=== PATIENT | female | born 1935 | race African-American/Black ===

== ENCOUNTER 2018-02-19 09:00 | Emergency (ER) | payer OTHER, BC ==
[2018-02-19 09:09] VITALS: BP 128/88; PULSE 66; TEMP 97.5; BMI 26.6
[2018-02-19] MEDS ORDERED: predniSONE 20 MG TABLET (UD) PO ONE (09:54)
[2018-02-19] MEDS ORDERED: diphenhydrAMINE HCL 25 MG CAPSULE (FP) PO ONE ×2 (09:54→09:57)
[2018-02-19] MEDS ORDERED: RANITIDINE HCL 150 MG TABLET (FP) PO ONE (09:55)
[2018-02-19] MEDS ORDERED: RANITIDINE HCL 150 MG TABLET (FP) ONE (09:57)
[2018-02-19] MEDS ORDERED: predniSONE 20 MG TABLET (UD) ONE (09:57)
--- NOTE | 2018-02-19 10:03 | PDOC ---
History of Present Illness - General Chief Complaint: Eye Problem Stated Complaint: EYE PROBLEM Time Seen by Provider: 02/19/18 09:48 History Source: Patient Exam Limitations: No Limitations - History of Present Illness Initial Comments: 02/19/18 09:57 82-year-old female presents to the ED with complaints of bilateral arm itching, facial swelling extending to the lower eyelids that worsened in severity this morning but began yesterday. Patient states 2 days ago was working in the garden without gloves when she touched poison candelaria but thought she had washed her hands following the exposure. Patient states has not taken any medication or applied any topicals and decided come to the ER today. Patient denies allergies difficulty breathing or difficulty swallowing. Timing/Duration: other Severity: mild Associated Symptoms: reports: rash Past History - Travel Traveled outside of the country in the last 30 days: No - Past Medical History Allergies/Adverse Reactions: Allergies Allergy/AdvReac Type Severity Reaction Status Date / Time No Known Allergies Allergy Verified 02/19/18 09:04 Home Medications: Ambulatory Orders Enalapril Maleate 10 mg PO DAILY 08/26/15 Atorvastatin Ca [Lipitor] 20 mg PO HS 02/19/18 Donepezil HCl [Aricept -] 5 mg PO DAILY 02/19/18 COPD: No HTN: Yes - Immunization History Immunization Up to Date: Yes - Suicide/Smoking/Psychosocial Hx Smoking History: Never smoked Have you smoked in the past 12 months: No Hx Alcohol Use: No Drug/Substance Use Hx: No Substance Use Type: None Patient Lives Alone: Yes Lives with/in: lives alone Review of Systems - Review of Systems Able to Perform ROS?: No Constitutional: No: Symptoms Reported HEENTM: No: Symptoms Reported Respiratory: No: Symptoms reported Integumentary: Yes: Pruritus, Rash Neurological: No: Headache *Physical Exam - Vital Signs Last Vital Signs Temp Pulse Resp BP Pulse Ox 97.5 F L 66 18 128/88 100 02/19/18 09:05 02/19/18 09:05 02/19/18 09:05 02/19/18 09:05 02/19/18 09:05 - Physical Exam General Appearance: Yes: Nourished, Appropriately Dressed. No: Apparent Distress HEENT: positive: EOMI, FER, TMs Normal, Pharynx Normal. negative: Pale Conjunctivae Neck: positive: Supple Respiratory/Chest: positive: Lungs Clear, Normal Breath Sounds. negative: Respiratory Distress, Accessory Muscle Use Cardiovascular: positive: Regular Rhythm, Regular Rate. negative: Murmur Integumentary: positive: Rash (Noted linear patchy and clustered fine vesicular rash to dorsal aspect of bilateral hands, bilateral arms, neck, face, ears, and lower eyelids. ) Neurologic: positive: Motor Strength 5/5 (ambulatory) Medical Decision Making - Medical Decision Making 02/19/18 10:02 Patient with pruritic rash secondary to poison candelaria after working in the garden. Patient will be given prednisone and Zantac in the ER and be discharged home with the same. *DC/Admit/Observation/Transfer Diagnosis at time of Disposition: Poison candelaria dermatitis - Discharge Dispostion Disposition: HOME Condition at time of disposition: Good - Referrals Referrals: Malvin Burns MD, MD [Primary Care Provider] - - Patient Instructions Printed Discharge Instructions: DI for Poison Candelaria Allergy Additional Instructions: Please wash hands frequently. Avoid scratching. Please take prednisone starting tomorrow since your given your first dose here and please continue to take the Benadryl as needed for itching. Change towel after each shower and pat dry the area versus rubbing. - Post Discharge Activity
== END 2018-02-19 10:10 | disposition home or self-care (01) ==
LOC: JERFT 09:00
DX: L23.7 Allergic contact dermatitis due to plants, except food (principal)
CPT/HCPCS: 99281-25

== ENCOUNTER 2018-12-07 16:23 | Emergency (ER) | payer OTHER, BC ==
[2018-12-07 16:30] VITALS: BP 136/83; PULSE 85; TEMP 98.2; BMI 24.2
--- NOTE | 2018-12-07 16:30 | PDOC ---
Rapid Medical Evaluation Time Seen by Provider: 12/07/18 16:26 Medical Evaluation: Allergies Allergy/AdvReac Type Severity Reaction Status Date / Time No Known Allergies Allergy Verified 02/19/18 09:04 12/07/18 16:26 I performed a brief in-person evaluation of this patient. Chief complaint: Weakness, found on floor by daughter on Monday. Cold symptoms. Pertinent physical exam findings: Vital signs unremarkable. Clear lungs. RRR, S1 /S2. I have ordered the following: EKG, cardiac labs, CXR. Patient to proceed to the ED for further evaluation. Discharge Disposition - Diagnosis Weakness - Referrals - Patient Instructions - Post Discharge Activity
[2018-12-07 17:41] LABS: BASO % 0.4 % (0-2.0); HEMOGLOBIN 12.7 GM/dL (10.7-15.3); LYMPH % 6.1 % (8-40); MCH 28.4 pg (25.7-33.7); MCHC 34.2 g/dl (32.0-36.0); MEAN PLT VOLUME 7.7 fl (7.5-11.1); MONO % 9.8 % (3.8-10.2); NEUT % 83.7 % (42.8-82.8); PLATELET COUNT 185 K/MM3 (134-434); RBC 4.46 M/mm3 (3.60-5.2); WHITE BLOOD COUNT 5.2 K/mm3 (4.0-10.0)
[2018-12-07 18:15] LABS: ALBUMIN 3.5 g/dl (3.4-5.0); ALK PHOS 53 U/L (45-117); ANION GAP 7 MMOL/L (8-16); BILIRUBIN,TOTAL 0.6 mg/dL (0.2-1); BLOOD UREA NITROGEN 16 mg/dL (7-18); CALCIUM 8.4 mg/dL (8.5-10.1); CHLORIDE 98 mmol/L (98-107); CO2 26 mmol/L (21-32); CREATININE 0.9 mg/dL (0.55-1.3); GLUCOSE,RANDOM 119 mg/dL (74-106); POTASSIUM 3.7 mmol/L (3.5-5.1); SGOT/AST 21 U/L (15-37); SGPT/ALT 24 U/L (13-61); SODIUM 132 mmol/L (136-145); TOT PROT 6.7 g/dl (6.4-8.2)
--- NOTE | 2018-12-07 18:30 | PDOC ---
History of Present Illness <Shantel Diaz - Last Filed: 12/07/18 23:33> - General History Source: Patient Exam Limitations: No Limitations - History of Present Illness Initial Comments: 82 yo F with a hx of HTN and dementia (dx 1 year ago; followed by Dr. Berkowitz) presents to the emergency department with malaise for 2 days. During the encounter, the patient had no memory of the antecedent events leading to the fall. The daughter of the patient, who acts as the healthcare proxy, noted the patient to have a runny nose for the past 2 days. In addition, the patient slid off her bed at 5pm 2 days ago. She found the patient conscious sitting upright. Per the patient's daughter, she could not have been on the ground longer than 2 hours. The daughter is concerned that the dementia is accelerating. Patient is oriented to person and time, but not place. Patient denies the following: fever , chills, visual changes, ears/nose/throat pain, chest pain, SOB, nausea, vomiting, FND, lightheadedness, dizziness, dysuria, hematuria, diarrhea, hematochezia, and leg pain/swelling. Shx: None Allergies: NKDA Social: Denies tobacco, alcohol, and substance abuse. PMD: Dr. Burns <Jose David Sweeney - Last Filed: 12/10/18 23:15> - General Chief Complaint: Syncope/Near Syncope Stated Complaint: WEAKNESS/SENT BY URGENT CARE Time Seen by Provider: 12/07/18 16:26 Past History <Shantel Diaz - Last Filed: 12/07/18 23:33> - Past Medical History COPD: No HTN: Yes - Immunization History Immunization Up to Date: Yes - Suicide/Smoking/Psychosocial Hx Smoking History: Never smoked Have you smoked in the past 12 months: No Hx Alcohol Use: No Drug/Substance Use Hx: No Substance Use Type: None <Jose David Sweeney - Last Filed: 12/10/18 23:15> - Past Medical History Allergies/Adverse Reactions: Allergies Allergy/AdvReac Type Severity Reaction Status Date / Time No Known Allergies Allergy Verified 12/07/18 16:28 Home Medications: Ambulatory Orders Enalapril Maleate 10 mg PO DAILY 08/26/15 Atorvastatin Ca [Lipitor] 20 mg PO HS 02/19/18 Donepezil HCl [Aricept -] 5 mg PO DAILY 02/19/18 Cephalexin [Keflex] 500 mg PO BID #14 capsule 12/07/18 Review of Systems - Review of Systems Able to Perform ROS?: Yes Is the patient limited Peruvian proficient: No Constitutional: Yes: Malaise, Weakness. No: Chills, Diaphoresis, Fever HEENTM: No: Eye Pain, Ear Pain, Nose Pain, Throat Pain, Mouth Pain Respiratory: No: Cough, Shortness of Breath, Productive cough Cardiac (ROS): No: Chest Pain, Lightheadedness, Palpitations, Syncope, Chest Tightness ABD/GI: No: Constipated, Diarrhea, Difficulty Swallowing, Nausea, Rectal Bleeding, Vomiting, Tarry Stools : No: Burning, Dysuria, Hematuria, Urgency Musculoskeletal: No: Back Pain, Joint Pain, Neck Pain Integumentary: No: Bruising, Erythema, Rash, Sweating Neurological: No: Headache, Numbness, Tingling, Tremors, Ataxia, Dizziness Psychiatric: No: Change in Appetite Endocrine: No: Unexplained Weight Gain Hematologic/Lymphatic: No: Anemia <Jose David Sweeney - Last Filed: 12/10/18 23:15> *Physical Exam - Vital Signs Last Vital Signs Temp Pulse Resp BP Pulse Ox 98.2 F 85 18 136/83 96 12/07/18 16:29 12/07/18 16:29 12/07/18 16:29 12/07/18 16:29 12/07/18 16:29 <Shantel Diaz - Last Filed: 12/07/18 23:33> - Vital Signs Last Vital Signs Temp Pulse Resp BP Pulse Ox 98.2 F 85 18 136/83 96 12/07/18 16:29 12/07/18 16:29 12/07/18 16:29 12/07/18 16:29 12/07/18 16:29 - Physical Exam General Appearance: Yes: Nourished, Appropriately Dressed. No: Apparent Distress, Intoxicated HEENT: positive: EOMI, FER, Normal ENT Inspection, Normal Voice, Symmetrical, TMs Normal, Pharynx Normal, Nasal Congestion, Hearing Grossly Normal. negative : Pale Conjunctivae, Scleral Icterus (R), Scleral Icterus (L), Muffled/Hoarse voice, Pharyngeal Erythema, Tonsillar Exudate, Tonsillar Erythema, Rhinorrhea, Excessive drooling Neck: positive: Trachea midline, Supple. negative: Tender, Lymphadenopathy (R) , Lymphadenopathy (L), Tender lateral, Tender midline Respiratory/Chest: positive: Lungs Clear, Normal Breath Sounds. negative: Chest Tender, Respiratory Distress, Accessory Muscle Use, Crackles, Rales, Rhonchi, Stridor, Wheezing, Hyperresonant Cardiovascular: positive: Regular Rhythm, Regular Rate, S1, S2. negative: Systolic Murmur Gastrointestinal/Abdominal: positive: Normal Bowel Sounds, Flat, Soft. negative : Tender, Guarding, Rebound Lymphatic: negative: Adenopathy Musculoskeletal: positive: Normal Inspection. negative: CVA Tenderness, Vertebral Tenderness Extremity: positive: Normal Capillary Refill, Normal Inspection, Normal Range of Motion. negative: Tender, Swelling, Calf Tenderness Integumentary: positive: Normal Color, Dry, Warm. 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 negative: Fully Oriented (oriented to self and time only), EOM Palsy, Facial Droop, Sensory Deficit, Confused <Jose David Sweeney - Last Filed: 12/10/18 23:15> Moderate Sedation - Procedure Monitoring Vital Signs: Procedure Monitoring Vital Signs Temperature 98.2 F 12/07/18 16:29 Pulse Rate 85 12/07/18 16:29 Respiratory Rate 18 12/07/18 16:29 Blood Pressure 136/83 12/07/18 16:29 O2 Sat by Pulse Oximetry (%) 96 12/07/18 16:29 <Shantel Diaz - Last Filed: 12/07/18 23:33> - Procedure Monitoring Vital Signs: Procedure Monitoring Vital Signs Temperature 98.2 F 12/07/18 16:29 Pulse Rate 85 12/07/18 16:29 Respiratory Rate 18 12/07/18 16:29 Blood Pressure 136/83 12/07/18 16:29 O2 Sat by Pulse Oximetry (%) 96 12/07/18 16:29 <Jose David Sweeney - Last Filed: 12/10/18 23:15> ED Treatment Course - LABORATORY CBC & Chemistry Diagram: 12/07/18 17:29 12/07/18 17:29 - ADDITIONAL ORDERS Additional order review: Laboratory Results 12/07/18 12/07/18 20:18 17:29 Sodium 132 L Potassium 3.7 Chloride 98 Carbon Dioxide 26 Anion Gap 7 L BUN 16 Creatinine 0.9 Creat Clearance w eGFR 59.80 Random Glucose 119 H Calcium 8.4 L Total Bilirubin 0.6 AST 21 ALT 24 Alkaline Phosphatase 53 Creatine Kinase 209 H Creatine Kinase Index 0.4 CK-MB (CK-2) < 1.0 Troponin I < 0.02 B-Natriuretic Peptide 280.8 Total Protein 6.7 Albumin 3.5 TSH 0.72 Free T4 1.19 Urine Color Capri Urine Appearance Clear Urine pH 5.0 Ur Specific [place] 1.028 Urine Protein 1+ H Urine Glucose (UA) Negative Urine Ketones 1+ H Urine Blood Negative Urine Nitrite Negative Urine Bilirubin Negative Urine Urobilinogen 2.0 H Ur Leukocyte Esterase Trace Urine WBC (Auto) 1 Urine RBC (Auto) <1 Ur Epithelial Cells Rare Urine Mucus Rare 12/07/18 17:29 RBC 4.46 MCV 83.0 MCHC 34.2 RDW 15.0 MPV 7.7 Neutrophils % 83.7 H Lymphocytes % 6.1 L D Monocytes % 9.8 Eosinophils % 0.0 D Basophils % 0.4 - Medications Given in the ED: ED Medications Discontinued Medications Generic Name Dose Route Start Last Admin Trade Name Freq PRN Reason Stop Dose Admin Sodium Chloride 1,000 mls @ 1,000 mls/hr 12/07/18 21:34 12/07/18 22:24 Normal Saline - IV 12/07/18 22:33 1,000 mls/hr ASDIR STA Administration Ceftriaxone Sodium 1 gm/ 50 mls @ 100 mls/hr 12/07/18 21:38 12/07/18 22:35 Dextrose IVPB 12/07/18 22:07 100 mls/hr ONCE ONE Administration <Shantel Diaz - Last Filed: 12/07/18 23:33> - LABORATORY CBC & Chemistry Diagram: 12/07/18 17:29 12/07/18 17:29 - ADDITIONAL ORDERS Additional order review: Laboratory Results 12/07/18 17:29 Sodium 132 L Potassium 3.7 Chloride 98 Carbon Dioxide 26 Anion Gap 7 L BUN 16 Creatinine 0.9 Creat Clearance w eGFR 59.80 Random Glucose 119 H Calcium 8.4 L Total Bilirubin 0.6 AST 21 ALT 24 Alkaline Phosphatase 53 Creatine Kinase 209 H Troponin I < 0.02 Total Protein 6.7 Albumin 3.5 12/07/18 17:29 RBC 4.46 MCV 83.0 MCHC 34.2 RDW 15.0 MPV 7.7 Neutrophils % 83.7 H Lymphocytes % 6.1 L D Monocytes % 9.8 Eosinophils % 0.0 D Basophils % 0.4 <Jose David Sweeney - Last Filed: 12/10/18 23:15> Medical Decision Making - Medical Decision Making 82 yo F with a hx of HTN and dementia (dx 1 year ago; followed by Dr. Berkowitz) presents to the emergency department with malaise for 2 days. Initial vitals: Initial Vital Signs Temp Pulse Resp BP Pulse Ox 98.2 F 85 18 136/83 96 12/07/18 16:29 12/07/18 16:29 12/07/18 16:29 12/07/18 16:29 12/07/18 16:29 Work up: ddx: delirium (ddx etiology includes infectious vs electrolyte vs intracranial vs worsening dementia) Laboratory Tests 12/07/18 12/07/18 12/07/18 17:29 17:29 20:18 WBC 5.2 RBC 4.46 Hgb 12.7 Hct 37.0 MCV 83.0 MCH 28.4 MCHC 34.2 RDW 15.0 Plt Count 185 MPV 7.7 Absolute Neuts (auto) 4.3 Neutrophils % 83.7 H Lymphocytes % 6.1 L D Monocytes % 9.8 Eosinophils % 0.0 D Basophils % 0.4 Nucleated RBC % 0 Sodium 132 L Potassium 3.7 Chloride 98 Carbon Dioxide 26 Anion Gap 7 L BUN 16 Creatinine 0.9 Creat Clearance w eGFR 59.80 Random Glucose 119 H Calcium 8.4 L Total Bilirubin 0.6 AST 21 ALT 24 Alkaline Phosphatase 53 Creatine Kinase 209 H Creatine Kinase Index 0.4 CK-MB (CK-2) < 1.0 Troponin I < 0.02 B-Natriuretic Peptide 280.8 Total Protein 6.7 Albumin 3.5 TSH 0.72 Free T4 1.19 Urine Color Capri Urine Appearance Clear Urine pH 5.0 Ur Specific [place] 1.028 Urine Protein 1+ H Urine Glucose (UA) Negative Urine Ketones 1+ H Urine Blood Negative Urine Nitrite Negative Urine Bilirubin Negative Urine Urobilinogen 2.0 H Ur Leukocyte Esterase Trace Urine WBC (Auto) 1 Urine RBC (Auto) <1 Ur Epithelial Cells Rare Urine Mucus Rare Influenza A (Rapid) Influenza B (Rapid) 12/07/18 22:00 WBC RBC Hgb Hct MCV MCH MCHC RDW Plt Count MPV Absolute Neuts (auto) Neutrophils % Lymphocytes % Monocytes % Eosinophils % Basophils % Nucleated RBC % Sodium Potassium Chloride Carbon Dioxide Anion Gap BUN Creatinine Creat Clearance w eGFR Random Glucose Calcium Total Bilirubin AST ALT Alkaline Phosphatase Creatine Kinase Creatine Kinase Index CK-MB (CK-2) Troponin I B-Natriuretic Peptide Total Protein Albumin TSH Free T4 Urine Color Urine Appearance Urine pH Ur Specific [place] Urine Protein Urine Glucose (UA) Urine Ketones Urine Blood Urine Nitrite Urine Bilirubin Urine Urobilinogen Ur Leukocyte Esterase Urine WBC (Auto) Urine RBC (Auto) Ur Epithelial Cells Urine Mucus Influenza A (Rapid) Negative Influenza B (Rapid) Negative CK slightly elevated, which could be indicative of a recent prolonged stay on the floor. During the examination, the patient's extremities were within normal limits and no tenderness was elicited throughout the vertebral column and extremities. the labs were within normal limits except for the UA which showed trace leukocyte esterase. started her on 1 l of NS and ceftriaxone in the department. head ct and cxr within normal limits. EKG does not show arrhythmia or ST elevations or depressions. Patient reassessed and found to be symptomatically better and strong than before. patient will be given outpatient prescription of abx. Spoke to Dr. Burns who states he will follow up with the patient on an outpatient basis within 1 week after discharge. patient was discharged stable and able to ambulate on her own volition. Dispo: Discharge <Jose David Sweeney - Last Filed: 12/10/18 23:15> *DC/Admit/Observation/Transfer <Shantel Diaz - Last Filed: 12/07/18 23:33> <Jose David Sweeney - Last Filed: 12/10/18 23:15> Diagnosis at time of Disposition: Weakness - Discharge Dispostion Disposition: HOME Condition at time of disposition: Stable - Prescriptions Prescriptions: Cephalexin [Keflex] 500 mg PO BID #14 capsule - Referrals Referrals: Malvin Burns MD, MD [Primary Care Provider] - - Patient Instructions Additional Instructions: you were seen in the emergency department for the evaluation of your fall and weakness,. your labs were within normal limits. your urine showed a trace amount of leukocyte esterase, which could be indicative of a UTI. you were treated here,. your head ct was within normal limits. please return to the emergency department if you have worsening symptoms or new concerning symptoms such as confusion and additional falls. thank you. please follow up with your primary this upcoming Monday. thank you. - Post Discharge Activity
[2018-12-07 19:58] LABS: N-TERMINAL BNP 280.8 pg/ml (5-450)
[2018-12-07 20:38] LABS: URINE APPEARANCE CLEAR; URINE BILIRUBIN NEGATIVE (<2.0 mg/dL); URINE COLOR AMBER; URINE GLUCOSE (UA) NEGATIVE (NEGATIVE); URINE KETONE 1+ (NEGATIVE); URINE LEUK ESTERASE TRACE (NEGATIVE); URINE NITRITE NEGATIVE (NEGATIVE); URINE PROTEIN 1+ (NEGATIVE)
[2018-12-07 20:53] LABS: EPI CELLS RARE /HPF (FEW); URINE MUCUS RARE
[2018-12-07] MEDS ORDERED: SODIUM CHLORIDE 1,000 ML IV STA (21:34)
[2018-12-07] MEDS ORDERED: CEFTRIAXONE 1 GM in DEXTROSE 5%-WATER - 50 ML IVPB ONE (21:38)
[2018-12-07] MEDS ORDERED: CEFTRIAXONE 1 GM/50 ML BAG ONE (22:29)
--- NOTE | 2018-12-07 23:34 | PDOC ---
Attending Attestation - Resident Resident Name: Jose David Sweeney - ED Attending Attestation I have performed the following: I have examined & evaluated the patient, The case was reviewed & discussed with the resident, I agree w/resident's findings & plan - Physicial Exam PE: 12/07/18 23:46 Agree with resident exam - Medical Decision Making 12/07/18 23:33 Pt signed out to us from the day team. Head CT scan normal; labs normal. Pt has a very slight UTI. Home with keflex. Pt and her daughter refusing to stay. They want to go follow outpatient with PMVern Burns. We spoke to Dr. Burns and he is in agreement. Pt will be discharged home. <Shantel Diaz - Last Filed: 12/07/18 23:46> - HPI HPI: 12/07/18 23:47 The patient is an 82 year old female with a PMH of HTN and dementia who presents to the ER with malaise for the past 2 days. Patients daughter is at bedside and noticed the patient has a runny nose. Patient also had a fall at 5PM 2 days ago, and was found on the ground by the daughter. Daughter is concerned the patients dementia may be accelerating. Patient is oriented in person and time, but not place here in the ER. Patient is unable to provide any further history. Patient denies chest pain, shortness of breath, abdominal pain, dizziness and headache. Denies nausea, vomiting, fevers, chills. Allergies: NKA Past surgical history: None reported. Social history: No reported alcohol, drug or cigarette use. PCP: Dr. Burns <Clara Zaldivar - Last Filed: 12/07/18 23:47>
--- NOTE | 2018-12-08 13:15 | EKG ---
Test Reason : Blood Pressure : / mmHG Vent. Rate : 080 BPM Atrial Rate : 080 BPM P-R Int : 170 ms QRS Dur : 086 ms QT Int : 398 ms P-R-T Axes : 071 -51 068 degrees QTc Int : 459 ms SINUS RHYTHM WITH PREMATURE ATRIAL COMPLEXES LEFT ANTERIOR FASCICULAR BLOCK NONSPECIFIC T WAVE ABNORMALITY ABNORMAL ECG WHEN COMPARED WITH ECG OF 10-DEC-2017 11:44, PREMATURE ATRIAL COMPLEXES ARE NOW PRESENT NONSPECIFIC T WAVE ABNORMALITY, IMPROVED IN LATERAL LEADS Confirmed by MD TONI, KRISTEN ([id number]) on 12/08/2018 1:15:25 PM Referred By: Confirmed By:KRISTEN MUÑOZ MD
== END 2018-12-07 23:05 | disposition home or self-care (01) ==
LOC: JER 16:23
PROC: 3E0337Z Introduction of Electrolytic and Water Balance Substance into Peripheral Vein, Percutaneous Approach (ICD-10-PCS; principal; 2018-12-07)
PROC: 3E03329 Introduction of Other Anti-infective into Peripheral Vein, Percutaneous Approach (ICD-10-PCS; 2018-12-07)
DX: N39.0 Urinary tract infection, site not specified (principal); W18.39XA Other fall on same level, initial encounter; Z91.81 History of falling; Y93.89 Activity, other specified; Y92.018 Other place in single-family (private) house as the place of occurrence of the external cause; Y99.8 Other external cause status; I10 Essential (primary) hypertension; F03.90 Unspecified dementia, unspecified severity, without behavioral disturbance, psychotic disturbance, mood disturbance, and anxiety; E78.00 Pure hypercholesterolemia, unspecified
CPT/HCPCS: 36415; 70450-TC; 71046-TC-FY; 80053; 81003; 81015; 82550; 82553; 83880; 84439; 84443; 84484; 85025; 87086; 87804; 93005; 93010; 96361; 96365; 99283-25; J7030

== ENCOUNTER 2019-10-14 17:37 | Emergency (ER) | payer OTHER, BC ==
[2019-10-14 18:05] VITALS: TEMP 97.8; BMI 29.2
--- NOTE | 2019-10-14 19:33 | PDOC ---
Attending Attestation - Resident Resident Name: Dharmesh Santoro - ED Attending Attestation I have performed the following: I have examined & evaluated the patient, The case was reviewed & discussed with the resident, I agree w/resident's findings & plan - HPI HPI: 10/14/19 23:47 see resident hpi - Physicial Exam PE: 10/14/19 23:47 see resident exam - Critical Care Time Total Critical Care Time: 60 Critical Care Statement: The care of this patient involved high complexity decision making to prevent further life threatening deterioration of the patient 's condition and/or to evaluate & treat vital organ system(s) failure or risk of failure. - Medical Decision Making 10/14/19 23:47 83-year-old female with vague abdominal pain and near syncopal episode, hypotensive on arrival Patient's blood pressure rapidly and proved with IV fluids CT scan of the abdomen was performed based on patient's presenting complaints which was significant for aortic dissection After lengthy discussion with radiology as well as the family it was determined that the benefits outweighed the risks to a repeat CTA now of the chest with an additional dye load Risks to renal function were discussed at length with the family as well as benefits Patient transferred stat to CT scan, currently awake and alert complaining of some mild back pain Patient now a full code according to daughter who is at the bedside Patient's other daughter was contacted via telephone as well
--- NOTE | 2019-10-14 20:53 | PDOC ---
History of Present Illness - General Chief Complaint: Syncope/Near Syncope Stated Complaint: ALT MENTAL STATUS Time Seen by Provider: 10/14/19 19:32 History Source: Patient Exam Limitations: No Limitations - History of Present Illness Initial Comments: 10/14/19 21:38 83 yo female pmh HTN, HLD and new onset dementia presents to the ED for sudden onset lethargy, poor PO intake and hypotension. Daughters at the bedside witness episode of sudden onset profound weakness at 4 30 pm today, state mother was shaking and had a difficult time attaining a BP. On arrival, EMS BP noted to be 70s systolic, given 1 L of fluids and mother reported to improve. Daughters state shortly after taking her PM BP medications, noted to have the stated episode of weakness. Daughters state mother is at baseline mental status (AOX2), not confused, deny complaints of LEYVA, changes in vision, weakness/ sensory changes on 1 side, facial asymmetry or slurred speech. Denies recent illness, recent travel, sick contacts, abdominal pain, changes in bowel or bladder habits, CP, SOB, back pain Past History - Past Medical History Allergies/Adverse Reactions: Allergies Allergy/AdvReac Type Severity Reaction Status Date / Time No Known Allergies Allergy Verified 10/14/19 18:08 Home Medications: Ambulatory Orders Enalapril Maleate 10 mg PO DAILY 08/26/15 Atorvastatin Ca [Lipitor] 20 mg PO HS 02/19/18 Donepezil HCl [Aricept -] 5 mg PO DAILY 02/19/18 Cephalexin [Keflex] 500 mg PO BID #14 capsule 12/07/18 COPD: No HTN: Yes - Immunization History Immunization Up to Date: Yes - Psycho Social/Smoking Cessation Hx Smoking History: Never smoked Have you smoked in the past 12 months: No Hx Alcohol Use: No Drug/Substance Use Hx: No Substance Use Type: None Review of Systems - Review of Systems Constitutional: Yes: See HPI HEENTM: Yes: See HPI Respiratory: Yes: See HPI Cardiac (ROS): Yes: See HPI ABD/GI: Yes: See HPI : Yes: See HPI Musculoskeletal: Yes: See HPI Integumentary: Yes: See HPI Neurological: Yes: See HPI *Physical Exam - Vital Signs Last Vital Signs Temp Pulse Resp BP Pulse Ox 97.8 F 77 16 94/64 99 10/14/19 18:01 10/14/19 18:01 10/14/19 18:01 10/14/19 18:01 10/14/19 18:01 - Physical Exam General Appearance: Yes: Nourished, Appropriately Dressed. No: Apparent Distress HEENT: positive: EOMI, FER Neck: positive: Supple. negative: Carotid bruit, Tender lateral, Tender midline Respiratory/Chest: positive: Lungs Clear, Normal Breath Sounds. negative: Respiratory Distress, Accessory Muscle Use, Rapid RR, Crackles, Rales, Rhonchi, Stridor, Wheezing Cardiovascular: positive: Regular Rhythm, Regular Rate, S1, S2. negative: Edema , JVD, Murmur Vascular Pulses: Dorsalis-Pedis (R): 3+, Doralis-Pedis (L): 3+ Gastrointestinal/Abdominal: positive: Flat, Soft, Tenderness (mild grimice to palpation ). negative: Pulsatile Mass, Increased Bowel Sounds, Distended, Guarding, Rebound Musculoskeletal: negative: CVA Tenderness Extremity: positive: Normal Capillary Refill, Normal Inspection Integumentary: positive: Normal Color, Dry, Warm Neurologic: positive: floor covering installer II-XII NML intact, Alert, Motor Strength 5/5. negative: Fully Oriented, Facial Droop, Numbness, Sensory Deficit ED Treatment Course - LABORATORY CBC & Chemistry Diagram: 10/14/19 19:45 10/14/19 19:45 - RADIOLOGY Radiology Studies Ordered: Category Date Time Status CHEST X-RAY PORTABLE* [RAD] Stat Radiology 10/14/19 19:32 Completed Medical Decision Making - Medical Decision Making 10/14/19 21:45 83 yo female pmh HTN, HLD and new onset dementia presents to the ED for sudden onset lethargy, poor PO intake and hypotension. Daughters at the bedside witness episode of sudden onset profound weakness at 4 30 pm today, state mother was shaking and had a difficult time attaining a BP. On arrival, EMS BP noted to be 70s systolic, given 1 L of fluids and mother reported to improve. Daughters state shortly after taking her PM BP medications, noted to have the stated episode of weakness. Daughters state mother is at baseline mental status (AOX2), not confused, deny complaints of LEYVA, changes in vision, weakness/ sensory changes on 1 side, facial asymmetry or slurred speech. Denies recent illness, recent travel, sick contacts, abdominal pain, changes in bowel or bladder habits, CP, SOB, back pain vitals show hypotension 90s, repeat in the 80s. After 2 L, BP 125 systolic and pt reports improvement in symptoms Pt reports an episode of syncope, will do labs, EKG, head CT, UA and likely admit BUN elevated without Cr elevation. Along with hypotension, concern for possible bleed, fecal occult done and will do AP CT CTAP shows aortic dissection. Pt unable to consent for second CTA for chest, discussed importance of chest CTA to determine treatment and disposition of pt along with risks of kidney injury with daughters at the bedside. Daughters agree and sign for pt to have second CTA CTA chest ED read shows arch involvement, type A dissection requiring emergent transfer consent for transfer attained from daughters Discussed case with [facility] CT surgery. Agree to admission and accept pt Pt transferred via [facility] Discharge - Discharge Information Problems reviewed: Yes Clinical Impression/Diagnosis: Aortic dissection Condition: Stable Disposition: TRANSFER ACUTE CARE/OTHER HOSP - Follow up/Referral Referrals: Malvin Burns MD, MD [Primary Care Provider] - - Patient Discharge Instructions - Post Discharge Activity
[2019-10-14] MEDS ORDERED: SODIUM CHLORIDE 1,000 ML IV STA (20:55)
[2019-10-14 20:57] LABS: ALBUMIN 3.6 g/dl (3.4-5.0); ALK PHOS 61 U/L (45-117); ANION GAP 8 MMOL/L (8-16); BILIRUBIN,TOTAL 0.7 mg/dL (0.2-1); BLOOD UREA NITROGEN 29.2 mg/dL (7-18); CALCIUM 8.5 mg/dL (8.5-10.1); CHLORIDE 112 mmol/L (98-107); CO2 23 mmol/L (21-32); GLUCOSE,RANDOM 128 mg/dL (74-106); MAGNESIUM 2.2 mg/dL (1.8-2.4); SGOT/AST 17 U/L (15-37); SGPT/ALT 23 U/L (13-61); SODIUM 143 mmol/L (136-145); TOT PROT 6.7 g/dl (6.4-8.2)
[2019-10-15] MEDS ORDERED: LABETALOL HCL 5 MG/1 ML (200MG/40ML VIAL) IVPB ONE (00:18)
[2019-10-15] MEDS ORDERED: LABETALOL HCL 5 MG/1 ML (100MG/20 ML VIAL) IVPUSH ONE (00:21)
[2019-10-15 00:32] LABS: BASO % 0.2 % (0-2.0); HEMATOCRIT 32.5 % (32.4-45.2); HEMOGLOBIN 10.8 GM/dL (10.7-15.3); LYMPH % 4.4 % (8-40); MCHC 33.4 g/dl (32.0-36.0); MEAN CELL VOLUME 83.8 fl (80-96); MEAN PLT VOLUME 7.4 fl (7.5-11.1); MONO % 3.2 % (3.8-10.2); NEUT % 92.2 % (42.8-82.8); PLATELET COUNT 173 K/MM3 (134-434); RBC 3.88 M/mm3 (3.60-5.2); RDW 15.1 % (11.6-15.6); WHITE BLOOD COUNT 9.2 K/mm3 (4.0-10.0)
[2019-10-15] MEDS ORDERED: LABETALOL HCL INJECTION 1,000 MG in SODIUM CHLORIDE 800 ML IV SCH (00:45)
[2019-10-15 00:52] VITALS: BP 166/96; PULSE 78
[2019-10-15 01:31] LABS: URINE APPEARANCE CLEAR; URINE BILIRUBIN NEGATIVE (NEGATIVE); URINE COLOR YELLOW; URINE GLUCOSE (UA) NEGATIVE (NEGATIVE); URINE KETONE NEGATIVE (NEGATIVE); URINE LEUK ESTERASE NEGATIVE (NEGATIVE); URINE NITRITE NEGATIVE (NEGATIVE); URINE PROTEIN NEGATIVE (NEGATIVE); URINE UROBILINOGEN 0.2 mg/dL (0.2-1.0)
[2019-10-15 04:19] LABS: ANISOCYTOSIS 2+; MACROCYTOSIS 0; PLATELET ESTIMATE DECREASED
--- NOTE | 2019-10-15 11:29 | EKG ---
Test Reason : Blood Pressure : / mmHG Vent. Rate : 054 BPM Atrial Rate : 054 BPM P-R Int : 226 ms QRS Dur : 082 ms QT Int : 486 ms P-R-T Axes : 058 -23 057 degrees QTc Int : 460 ms SINUS BRADYCARDIA WITH 1ST DEGREE A-V BLOCK NONSPECIFIC T WAVE ABNORMALITY ABNORMAL ECG Confirmed by Segundo Kenny MD ([id number]) on 10/15/2019 11:28:58 AM Referred By: Confirmed By:Segundo Kenny MD
== END 2019-10-15 00:52 | disposition short-term general hospital (02) ==
LOC: JER 17:37
DX: I71.00 Dissection of unspecified site of aorta (principal); I10 Essential (primary) hypertension; E78.5 Hyperlipidemia, unspecified; F03.90 Unspecified dementia, unspecified severity, without behavioral disturbance, psychotic disturbance, mood disturbance, and anxiety
CPT/HCPCS: 36415; 70450-TC; 71045-TC-FY; 71275-TC; 74174-TC; 80053; 81003; 82272; 82550; 83605; 83735; 84484; 85025; 87086; 93005; 93010; 99285-25; J7030; Q9967

== ENCOUNTER 2022-03-08 12:15 | Inpatient (IN) | payer OTHER, BC ==
[2022-03-08] MEDS ORDERED: ONDANSETRON 4 MG/2 ML VIAL ONE (12:51)
[2022-03-08] MEDS ORDERED: ONDANSETRON 4 MG/2 ML VIAL IVPB ONE (12:51)
[2022-03-08 12:59] LABS: VENOUS BASE EXCESS -1.9 mmol/L (-2-2); VENOUS O2 SATURATION 81.4 % (70-80); VENOUS PCO2 41.1 mmHg (38-52); VENOUS PH 7.371 (7.310-7.410)
[2022-03-08 13:01] LABS: BASO % 0.4 % (0-2.0); EOS % 0.3 % (0-4.5); HEMATOCRIT 36.2 % (32.4-45.2); LYMPH % 18.5 % (8-40); MCH 25.9 pg (25.7-33.7); MCHC 33.1 g/dl (32.0-36.0); MEAN CELL VOLUME 78.2 fl (80-96); MEAN PLT VOLUME 7.2 fl (7.5-11.1); MONO % 6.1 % (3.8-10.2); NEUT % 74.7 % (42.8-82.8); PLATELET COUNT 288 10^3/uL (134-434); RBC 4.63 M/mm3 (3.60-5.2); RDW 15.4 % (11.6-15.6); WHITE BLOOD COUNT 12.1 K/mm3 (4.0-10.0)
[2022-03-08 13:14] LABS: ACTIVATED PTT 25.9 SECONDS (25.2-36.5); INR 1.12 (0.83-1.09); PROTHROMBIN TIME (PATIENT) 12.9 SEC (9.7-13.0)
[2022-03-08 13:21] LABS: ALBUMIN 3.6 g/dl (3.4-5.0); BLOOD UREA NITROGEN 18.6 mg/dL (7-18); CALCIUM 9.2 mg/dL (8.5-10.1); MAGNESIUM 2.4 mg/dL (1.8-2.4)
[2022-03-08 13:24] LABS: CREATININE 0.9 mg/dL (0.55-1.3)
[2022-03-08 13:26] LABS: BILIRUBIN,TOTAL 0.7 mg/dL (0.2-1); TOT PROT 7.2 g/dl (6.4-8.2)
[2022-03-08 13:33] LABS: LACTIC ACID 2.9 mmol/L (0.4-2.0)
[2022-03-08] MEDS ORDERED: MIDAZOLAM HCL 2 MG/2 ML SINGLE DOSE VIAL IVPUSH ONE ×2 (13:39→14:57)
[2022-03-08] MEDS ORDERED: MIDAZOLAM HCL 2 MG/2 ML SINGLE DOSE VIAL ONE ×2 (13:48→15:01)
[2022-03-08] MEDS ORDERED: SODIUM CHLORIDE 0.9% 500 ML INFUS.BAG IV ONE (14:13)
[2022-03-08 15:24] LABS: PH,URINE 6.5 (5.0-8.0); URINE APPEARANCE CLEAR; URINE BILIRUBIN NEGATIVE (NEGATIVE); URINE COLOR YELLOW; URINE GLUCOSE (UA) NEGATIVE (NEGATIVE); URINE KETONE NEGATIVE (NEGATIVE); URINE LEUK ESTERASE NEGATIVE (NEGATIVE); URINE NITRITE NEGATIVE (NEGATIVE); URINE PROTEIN NEGATIVE (NEGATIVE); URINE UROBILINOGEN 0.2 mg/dL (0.2-1.0)
[2022-03-08 17:02] LABS: BASO % 0.3 % (0-2.0); HEMATOCRIT 39.1 % (32.4-45.2); HEMOGLOBIN 12.7 GM/dL (10.7-15.3); LYMPH % 3.3 % (8-40); MCH 25.6 pg (25.7-33.7); MCHC 32.4 g/dl (32.0-36.0); MEAN CELL VOLUME 78.9 fl (80-96); MONO % 4.1 % (3.8-10.2); NEUT % 92.3 % (42.8-82.8); PLATELET COUNT 251 10^3/uL (134-434); RBC 4.95 M/mm3 (3.60-5.2); RDW 15.6 % (11.6-15.6); WHITE BLOOD COUNT 18.1 K/mm3 (4.0-10.0)
[2022-03-08] MEDS ORDERED: PIPERACILLIN/TAZOB 3.375 GM 3.375 GM in DEXTROSE 5%-WATER - 50 ML IVPB ONE (17:20)
[2022-03-08] MEDS ORDERED: PIPERACILLIN/TAZOB 3.375 GM 3.375 GM/50 ML BAG IVPB ONE (17:28)
[2022-03-08 17:49] LABS: LACTIC ACID 4.6 mmol/L (0.4-2.0)
[2022-03-08] MEDS ORDERED: SODIUM CHLORIDE 0.9% 1000 ML INFUS.BAG IV ONE (18:13)
[2022-03-08 19:12] LABS: ANISOCYTOSIS 1+; MACROCYTOSIS 1+
[2022-03-08 19:27] LABS: PLATELET ESTIMATE ADEQUATE
[2022-03-08 21:35] LABS: BASO % 0.2 % (0-2.0); HEMATOCRIT 36.7 % (32.4-45.2); HEMOGLOBIN 11.9 GM/dL (10.7-15.3); MCH 25.4 pg (25.7-33.7); MCHC 32.4 g/dl (32.0-36.0); MEAN CELL VOLUME 78.6 fl (80-96); MEAN PLT VOLUME 7.2 fl (7.5-11.1); MONO % 2.5 % (3.8-10.2); NEUT % 93.3 % (42.8-82.8); PLATELET COUNT 255 10^3/uL (134-434); RBC 4.67 M/mm3 (3.60-5.2); RDW 15.5 % (11.6-15.6); WHITE BLOOD COUNT 12.2 K/mm3 (4.0-10.0)
[2022-03-08 21:56] LABS: CALCIUM 8.8 mg/dL (8.5-10.1)
[2022-03-08 21:57] LABS: BLOOD UREA NITROGEN 14.1 mg/dL (7-18)
[2022-03-08 22:00] LABS: CREATININE 0.8 mg/dL (0.55-1.3)
[2022-03-08 22:15] LABS: LACTIC ACID 2.2 mmol/L (0.4-2.0)
[2022-03-08 22:18] LABS: ANISOCYTOSIS 1+; MACROCYTOSIS 0
[2022-03-08 22:19] LABS: PLATELET ESTIMATE ADEQUATE
[2022-03-08] MEDS ORDERED: ACETAMINOPHEN 325 MG TABLET (FP) PO PRN (22:24)
[2022-03-09] MEDS: DEXTROSE 5%-NORMAL SALINE 1,000 ML IV SCH ×2 (02:40→22:39)
[2022-03-09] MEDS ORDERED: PIPERACILLIN/TAZOB 3.375 GM 3.375 GM/50 ML BAG IVPB ONE ×2 (05:45)
[2022-03-09] MEDS ORDERED: HEPARIN NA (PORCINE) 5,000 UNITS/ML 1ML VIAL ONE (05:45)
[2022-03-09] MEDS: PIPERACILLIN/TAZOB 3.375 GM 3.375 GM in DEXTROSE 5%-WATER - 50 ML IVPB SCH ×3 (05:59→17:50)
[2022-03-09] MEDS: HEPARIN NA (PORCINE) 5,000 UNITS/ML 1ML VIAL SQ SCH ×3 (06:00→22:33)
[2022-03-09 06:57] LABS: BASO % 0.4 % (0-2.0); EOS % 0.1 % (0-4.5); HEMATOCRIT 34.5 % (32.4-45.2); HEMOGLOBIN 11.7 GM/dL (10.7-15.3); LYMPH % 12.3 % (8-40); MCH 26.3 pg (25.7-33.7); MCHC 33.9 g/dl (32.0-36.0); MEAN CELL VOLUME 77.8 fl (80-96); MEAN PLT VOLUME 7.3 fl (7.5-11.1); NEUT % 79.2 % (42.8-82.8); PLATELET COUNT 242 10^3/uL (134-434); RBC 4.44 M/mm3 (3.60-5.2); RDW 15.5 % (11.6-15.6); WHITE BLOOD COUNT 9.5 K/mm3 (4.0-10.0)
[2022-03-09 07:18] LABS: CALCIUM 8.9 mg/dL (8.5-10.1)
[2022-03-09 07:19] LABS: BLOOD UREA NITROGEN 13.3 mg/dL (7-18)
[2022-03-09 07:22] LABS: CREATININE 0.8 mg/dL (0.55-1.3)
[2022-03-09] MEDS ORDERED: DEXTROSE 5%-WATER - 50 ML IVPB ONE (09:18)
[2022-03-09] MEDS ORDERED: PIPERACILLIN/TAZOBACTAM 3.375 GM VIAL IVPB ONE ×2 (09:18→17:13)
[2022-03-09] MEDS: ENALAPRIL MALEATE 10 MG TABLET PO SCH ×2 (09:53→22:33)
[2022-03-09] MEDS: amLODIPine BESYLATE 5 MG TABLET (FP) PO SCH (09:54)
[2022-03-09] MEDS: ASPIRIN 81 MG CHEWABLE TABLETS PO SCH (09:55)
[2022-03-09] MEDS: DONEPEZIL HCL 5 MG TABLET (FP) PO SCH (09:55)
[2022-03-09] MEDS: POLYETHYLENE GLYCOL (HEALTHYLAX) 3350 17 GM PACKET PO SCH ×2 (14:48→22:33)
[2022-03-09] MEDS ORDERED: ATORVASTATIN CA 20 MG TABLET (FP) PO SCH (22:00)
[2022-03-10] MEDS ORDERED: PIPERACILLIN/TAZOBACTAM 3.375 GM VIAL IVPB ONE ×3 (02:16→17:38)
[2022-03-10] MEDS ORDERED: DEXTROSE 5%-WATER - 50 ML IVPB ONE ×3 (02:16→17:38)
[2022-03-10] MEDS: PIPERACILLIN/TAZOB 3.375 GM 3.375 GM in DEXTROSE 5%-WATER - 50 ML IVPB SCH ×3 (02:56→17:39)
[2022-03-10] MEDS: HEPARIN NA (PORCINE) 5,000 UNITS/ML 1ML VIAL SQ SCH ×3 (06:11→22:53)
[2022-03-10] MEDS: DONEPEZIL HCL 5 MG TABLET (FP) PO SCH (09:47)
[2022-03-10] MEDS: amLODIPine BESYLATE 5 MG TABLET (FP) PO SCH (09:47)
[2022-03-10] MEDS: ASPIRIN 81 MG CHEWABLE TABLETS PO SCH (09:47)
[2022-03-10] MEDS: ENALAPRIL MALEATE 10 MG TABLET PO SCH ×2 (09:48→22:53)
[2022-03-10] MEDS: POLYETHYLENE GLYCOL (HEALTHYLAX) 3350 17 GM PACKET PO SCH ×2 (14:48→22:54)
[2022-03-10 14:59] VITALS: BMI 21.7
[2022-03-10] MEDS ORDERED: ACETAMINOPHEN 325 MG TABLET (FP) PO PRN (21:05)
[2022-03-11] MEDS ORDERED: DEXTROSE 5%-WATER - 50 ML IVPB ONE ×3 (04:30→17:37)
[2022-03-11] MEDS ORDERED: PIPERACILLIN/TAZOBACTAM 3.375 GM VIAL IVPB ONE ×3 (04:30→17:37)
[2022-03-11] MEDS: PIPERACILLIN/TAZOB 3.375 GM 3.375 GM in DEXTROSE 5%-WATER - 50 ML IVPB SCH ×3 (04:36→17:39)
[2022-03-11] MEDS: HEPARIN NA (PORCINE) 5,000 UNITS/ML 1ML VIAL SQ SCH ×2 (06:05→14:36)
[2022-03-11] MEDS: POLYETHYLENE GLYCOL (HEALTHYLAX) 3350 17 GM PACKET PO SCH ×2 (06:05→14:37)
[2022-03-11] MEDS ORDERED: amLODIPine BESYLATE 5 MG TABLET (FP) PO SCH (10:00)
[2022-03-11] MEDS ORDERED: ASPIRIN 81 MG CHEWABLE TABLETS PO SCH (10:00)
[2022-03-11] MEDS ORDERED: DONEPEZIL HCL 5 MG TABLET (FP) PO SCH (10:00)
[2022-03-11] MEDS: ENALAPRIL MALEATE 10 MG TABLET PO SCH (11:00)
[2022-03-11 11:26] VITALS: PULSE 72
[2022-03-11 13:41] VITALS: BP 109/56; TEMP 98.1
[2022-03-12] MEDS ORDERED: PANTOPRAZOLE 20 MG TABLET PO SCH (10:00)
[2022-03-14] MEDS ORDERED: POLYETHYLENE GLYCOL (HEALTHYLAX) 3350 17 GM PACKET PO SCH (10:00)
== END 2022-03-11 19:02 | disposition home health service (06) | DRG 394 ==
LOC: JER 12:15 → JERBED 14:25 → J4W 03-09 08:33 → J6S 03-10 21:02
PROVIDERS: ADMIT Hospitalist; ATTEND Family Medicine
DX: K55.9 Vascular disorder of intestine, unspecified (principal); E87.2 Acidosis; F03.90 Unspecified dementia, unspecified severity, without behavioral disturbance, psychotic disturbance, mood disturbance, and anxiety; D72.829 Elevated white blood cell count, unspecified; I71.4 Abdominal aortic aneurysm, without rupture; R55 Syncope and collapse; I10 Essential (primary) hypertension; E78.5 Hyperlipidemia, unspecified
CPT/HCPCS: 0241U-QW; 36415; 70450-TC; 71045-TC-FY; 71275-TC; 74174-TC; 80048; 80053; 81003; 82272; 82803; 82962; 83605; 83735; 83880; 84484; 85025; 85610; 85730; 86140; 87040; 87045; 87046; 87086; 87177; 87205; 87209; 87324; 87449; 93005; 93010; 93306-TC; 97116-GP; 97161-GP; 99285-25; J1644; Q9967

== ENCOUNTER 2022-03-23 22:04 | Inpatient (IN) | payer OTHER, BC ==
[2022-03-23 23:29] VITALS: BMI 22.6
[2022-03-23 23:30] LABS: BASO % 0.5 % (0-2.0); EOS % 0.5 % (0-4.5); HEMATOCRIT 33.3 % (32.4-45.2); HEMOGLOBIN 11.3 GM/dL (10.7-15.3); LYMPH % 7.4 % (8-40); MCH 26.7 pg (25.7-33.7); MCHC 33.9 g/dl (32.0-36.0); MEAN CELL VOLUME 78.7 fl (80-96); MONO % 5.2 % (3.8-10.2); NEUT % 86.4 % (42.8-82.8); PLATELET COUNT 288 10^3/uL (134-434); RBC 4.23 M/mm3 (3.60-5.2); RDW 16.3 % (11.6-15.6); WHITE BLOOD COUNT 10.4 K/mm3 (4.0-10.0)
[2022-03-23 23:54] LABS: CALCIUM 8.9 mg/dL (8.5-10.1)
[2022-03-23 23:55] LABS: ALBUMIN 3.5 g/dl (3.4-5.0); BLOOD UREA NITROGEN 15.2 mg/dL (7-18); MAGNESIUM 2.3 mg/dL (1.8-2.4)
[2022-03-23 23:58] LABS: CREATININE 0.9 mg/dL (0.55-1.3); PHOSPHOROUS 3.7 mg/dL (2.5-4.9)
[2022-03-23 23:59] LABS: TOT PROT 6.8 g/dl (6.4-8.2)
[2022-03-24] LABS: BILIRUBIN,TOTAL 0.6 mg/dL (0.2-1)
[2022-03-24] MEDS ORDERED: LORazepam 2 MG/ML SDV VIAL IVPUSH ONE (00:19)
[2022-03-24 03:25] LABS: PH,URINE 6.5 (5.0-8.0); URINE APPEARANCE CLEAR; URINE BILIRUBIN NEGATIVE (NEGATIVE); URINE COLOR YELLOW; URINE GLUCOSE (UA) NEGATIVE (NEGATIVE); URINE KETONE NEGATIVE (NEGATIVE); URINE LEUK ESTERASE NEGATIVE (NEGATIVE); URINE NITRITE NEGATIVE (NEGATIVE); URINE PROTEIN NEGATIVE (NEGATIVE); URINE UROBILINOGEN 0.2 mg/dL (0.2-1.0)
[2022-03-24] MEDS ORDERED: ACETAMINOPHEN 325 MG TABLET (FP) PO PRN (05:19)
[2022-03-24] MEDS ORDERED: ASPIRIN 81 MG CHEWABLE TABLETS ONE (09:02)
[2022-03-24] MEDS ORDERED: ENOXAPARIN NA (PORCINE) 40 MG/0.4 ML DISP.SYRIN SQ ONE (09:03)
[2022-03-24] MEDS ORDERED: DONEPEZIL HCL 5 MG TABLET (FP) ONE (09:03)
[2022-03-24] MEDS: ENOXAPARIN NA (PORCINE) 40 MG/0.4 ML DISP.SYRIN SQ SCH (09:30)
[2022-03-24] MEDS: ASPIRIN 81 MG CHEWABLE TABLETS PO SCH (09:30)
[2022-03-24 09:59] LABS: BASO % 0.8 % (0-2.0); HEMOGLOBIN 11.9 GM/dL (10.7-15.3); LYMPH % 17.2 % (8-40); MCH 26.5 pg (25.7-33.7); MCHC 33.9 g/dl (32.0-36.0); MEAN CELL VOLUME 78.3 fl (80-96); MEAN PLT VOLUME 7.1 fl (7.5-11.1); MONO % 7.7 % (3.8-10.2); NEUT % 73.3 % (42.8-82.8); PLATELET COUNT 287 10^3/uL (134-434); RBC 4.47 M/mm3 (3.60-5.2); RDW 16.3 % (11.6-15.6)
[2022-03-24] MEDS ORDERED: DONEPEZIL HCL 5 MG TABLET (FP) PO SCH (10:00)
[2022-03-24 10:22] LABS: CALCIUM 9.2 mg/dL (8.5-10.1); MAGNESIUM 2.4 mg/dL (1.8-2.4)
[2022-03-24 10:23] LABS: ALBUMIN 3.5 g/dl (3.4-5.0); BLOOD UREA NITROGEN 11.9 mg/dL (7-18); MAGNESIUM 2.4 mg/dL (1.8-2.4)
[2022-03-24 10:26] LABS: CREATININE 0.8 mg/dL (0.55-1.3); PHOSPHOROUS 3.3 mg/dL (2.5-4.9)
[2022-03-24 10:27] LABS: BILIRUBIN,TOTAL 0.6 mg/dL (0.2-1); TOT PROT 6.9 g/dl (6.4-8.2)
[2022-03-24] MEDS: QUEtiapine FUMARATE 25 MG TABLET PO SCH (23:11)
[2022-03-24] MEDS: ATORVASTATIN CA 20 MG TABLET (FP) PO SCH (23:11)
[2022-03-25] MEDS: ASPIRIN 81 MG CHEWABLE TABLETS PO SCH (09:37)
[2022-03-25] MEDS: levETIRAcetam 250 MG TABLET PO SCH ×2 (09:37→22:06)
[2022-03-25] MEDS: ENOXAPARIN NA (PORCINE) 40 MG/0.4 ML DISP.SYRIN SQ SCH (09:37)
[2022-03-25] MEDS: PSYLLIUM 5.85 GM PACKET PO SCH (14:43)
[2022-03-25] MEDS: QUEtiapine FUMARATE 25 MG TABLET PO SCH (22:06)
[2022-03-25] MEDS: ATORVASTATIN CA 20 MG TABLET (FP) PO SCH (22:06)
[2022-03-26] MEDS: ENOXAPARIN NA (PORCINE) 40 MG/0.4 ML DISP.SYRIN SQ SCH (10:45)
[2022-03-26] MEDS: ASPIRIN 81 MG CHEWABLE TABLETS PO SCH (10:45)
[2022-03-26] MEDS: levETIRAcetam 250 MG TABLET PO SCH ×2 (10:45→22:29)
[2022-03-26] MEDS: PSYLLIUM 5.85 GM PACKET PO SCH (12:23)
[2022-03-26] MEDS: ATORVASTATIN CA 20 MG TABLET (FP) PO SCH (22:28)
[2022-03-26] MEDS: QUEtiapine FUMARATE 25 MG TABLET PO SCH (22:28)
[2022-03-27] MEDS: ENOXAPARIN NA (PORCINE) 40 MG/0.4 ML DISP.SYRIN SQ SCH (09:07)
[2022-03-27] MEDS: levETIRAcetam 250 MG TABLET PO SCH ×2 (09:07→21:41)
[2022-03-27] MEDS: ASPIRIN 81 MG CHEWABLE TABLETS PO SCH (09:07)
[2022-03-27] MEDS: PSYLLIUM 5.85 GM PACKET PO SCH (12:26)
[2022-03-27] MEDS: ATORVASTATIN CA 20 MG TABLET (FP) PO SCH (21:41)
[2022-03-27] MEDS: QUEtiapine FUMARATE 25 MG TABLET PO SCH (21:41)
[2022-03-28] MEDS: ASPIRIN 81 MG CHEWABLE TABLETS PO SCH (09:04)
[2022-03-28] MEDS: levETIRAcetam 250 MG TABLET PO SCH ×2 (09:04→22:39)
[2022-03-28] MEDS: ENOXAPARIN NA (PORCINE) 40 MG/0.4 ML DISP.SYRIN SQ SCH (09:04)
[2022-03-28 10:25] LABS: BASO % 1.1 % (0-2.0); EOS % 2.1 % (0-4.5); HEMATOCRIT 34.4 % (32.4-45.2); HEMOGLOBIN 11.6 GM/dL (10.7-15.3); LYMPH % 25.1 % (8-40); MCH 26.3 pg (25.7-33.7); MCHC 33.8 g/dl (32.0-36.0); MEAN CELL VOLUME 77.8 fl (80-96); MEAN PLT VOLUME 7.3 fl (7.5-11.1); NEUT % 62.7 % (42.8-82.8); PLATELET COUNT 271 10^3/uL (134-434); RBC 4.42 M/mm3 (3.60-5.2); RDW 16.4 % (11.6-15.6); WHITE BLOOD COUNT 4.4 K/mm3 (4.0-10.0)
[2022-03-28 10:40] LABS: CALCIUM 8.9 mg/dL (8.5-10.1)
[2022-03-28 10:41] LABS: ALBUMIN 3.3 g/dl (3.4-5.0); BLOOD UREA NITROGEN 14.3 mg/dL (7-18)
[2022-03-28 10:44] LABS: CREATININE 0.8 mg/dL (0.55-1.3)
[2022-03-28 10:45] LABS: BILIRUBIN,TOTAL 0.9 mg/dL (0.2-1)
[2022-03-28 10:46] LABS: TOT PROT 6.5 g/dl (6.4-8.2)
[2022-03-28] MEDS: PSYLLIUM 5.85 GM PACKET PO SCH (11:23)
[2022-03-28] MEDS: QUEtiapine FUMARATE 25 MG TABLET PO SCH (22:39)
[2022-03-28] MEDS: ATORVASTATIN CA 20 MG TABLET (FP) PO SCH (22:39)
[2022-03-29] MEDS: levETIRAcetam 250 MG TABLET PO SCH ×2 (09:23→21:56)
[2022-03-29] MEDS: ASPIRIN 81 MG CHEWABLE TABLETS PO SCH (09:23)
[2022-03-29] MEDS: ENOXAPARIN NA (PORCINE) 40 MG/0.4 ML DISP.SYRIN SQ SCH (09:23)
[2022-03-29] MEDS: PSYLLIUM 5.85 GM PACKET PO SCH (14:00)
[2022-03-29] MEDS: QUEtiapine FUMARATE 25 MG TABLET PO SCH (21:56)
[2022-03-29] MEDS: ATORVASTATIN CA 20 MG TABLET (FP) PO SCH (21:56)
[2022-03-30] MEDS: levETIRAcetam 250 MG TABLET PO SCH (09:12)
[2022-03-30] MEDS: ENOXAPARIN NA (PORCINE) 40 MG/0.4 ML DISP.SYRIN SQ SCH (09:12)
[2022-03-30] MEDS: ASPIRIN 81 MG CHEWABLE TABLETS PO SCH (09:12)
[2022-03-30] MEDS: PSYLLIUM 5.85 GM PACKET PO SCH (13:19)
[2022-03-30 15:17] VITALS: BP 133/71; PULSE 76; TEMP 98.4
== END 2022-03-30 18:49 | DRG 101 ==
LOC: JER 22:04 → JERBED 03-24 02:00 → J8W 03-24 17:05
PROVIDERS: ADMIT Hospitalist; ATTEND Family Medicine
DX: R56.9 Unspecified convulsions (principal); I50.32 Chronic diastolic (congestive) heart failure; E78.5 Hyperlipidemia, unspecified; I11.0 Hypertensive heart disease with heart failure; K59.00 Constipation, unspecified; R55 Syncope and collapse; I71.2 Thoracic aortic aneurysm, without rupture; G30.9 Alzheimer's disease, unspecified; F02.80 Dementia in other diseases classified elsewhere, unspecified severity, without behavioral disturbance, psychotic disturbance, mood disturbance, and anxiety
CPT/HCPCS: 0241U-QW; 36415; 70450-TC; 71045-TC-FY; 80053; 81003; 82607; 82962; 83605; 83735; 84100; 84443; 84484; 85025; 87086; 93005; 93010; 93225; 93226; 97116-GP; 97162-GP; 99285-25; C9803-CS; U0003; U0005

== ENCOUNTER 2022-08-06 12:51 | Emergency (ER) | payer OTHER, BC ==
[2022-08-06 13:35] VITALS: RESP 18; TEMP 97.3; BMI 21.7
[2022-08-06 15:54] LABS: BASO % 0.5 % (0-2.0); EOS % 0.1 % (0-4.5); HEMOGLOBIN 11.1 GM/dL (10.7-15.3); LYMPH % 10.2 % (8-40); MCH 26.6 pg (25.7-33.7); MCHC 32.8 g/dl (32.0-36.0); MEAN PLT VOLUME 7.4 fl (7.5-11.1); MONO % 5.6 % (3.8-10.2); NEUT % 83.6 % (42.8-82.8); PLATELET COUNT 297 10^3/uL (134-434); RBC 4.19 M/mm3 (3.60-5.2); RDW 14.8 % (11.6-15.6); WHITE BLOOD COUNT 7.4 K/mm3 (4.0-10.0)
[2022-08-06 16:09] LABS: ALBUMIN 3.7 g/dl (3.4-5.0); BLOOD UREA NITROGEN 12.2 mg/dL (7-18); CALCIUM 9.1 mg/dL (8.5-10.1)
[2022-08-06 16:10] LABS: MAGNESIUM 2.3 mg/dL (1.8-2.4)
[2022-08-06 16:12] LABS: CREATININE 0.9 mg/dL (0.55-1.3)
[2022-08-06 16:13] VITALS: BP 147/78; PULSE 88
[2022-08-06 16:14] LABS: BILIRUBIN,TOTAL 0.5 mg/dL (0.2-1); TOT PROT 7.2 g/dl (6.4-8.2)
== END 2022-08-06 16:15 | disposition home or self-care (01) ==
LOC: JER 12:51
DX: R41.82 Altered mental status, unspecified (principal); G40.89 Other seizures
CPT/HCPCS: 36415; 80053; 82962; 83605; 83735; 85025; 99283-25

== ENCOUNTER 2023-11-25 23:01 | Emergency (ER) | payer OTHER, BC ==
[2023-11-25 23:58] VITALS: BMI 22.6
[2023-11-26 01:40] VITALS: BP 114/82; PULSE 79; RESP 18; TEMP 99.7
== END 2023-11-26 03:49 | disposition home or self-care (01) ==
LOC: JER 23:01
DX: R50.9 Fever, unspecified (principal); R05.9 Cough, unspecified; U07.1 COVID-19
CPT/HCPCS: 0241U-QW; 71045-TC-FY; 99284-25